=== PATIENT | male | born 1965 | race Hispanic/Latino ===

== ENCOUNTER 2021-03-29 16:13 | Emergency (ER) | payer BC ==
[2021-03-29] MEDS ORDERED: Proparacaine 0.5% Opth 15 ML BOT ONE (17:24)
[2021-03-29] MEDS ORDERED: Fluorescein Opthalmic Strip ONE (17:26)
== END 2021-03-29 18:24 | disposition home or self-care (01) ==
LOC: ERS 16:13
DX: G51.0 Bell's palsy (principal); I10 Essential (primary) hypertension; F17.220 Nicotine dependence, chewing tobacco, uncomplicated
CPT/HCPCS: 70450; 93005